=== PATIENT | male | born 1970 | race Caucasian/White ===

== ENCOUNTER 2016-08-13 15:28 | Emergency (ER) | payer SELFPAY ==
[~2016-08-13] VITALS: Ht 188 cm; Wt 104.5 kg
[2016-08-13 15:35] VITALS: BP 141/88; PULSE 94; TEMP 99.8
[2016-08-13] MEDS ORDERED: PROAIR HFA0.09 MG/AC IH ×2 (15:37→16:55)
[2016-08-13 16:08] LABS: INFLUENZA B NEGATIVE
[2016-08-13] MEDS ORDERED: PREDNISONE20 MG PO (16:55)
[2016-08-13] MEDS ORDERED: ZITHROMAX Z PA250 MG PO (16:55)
== END 2016-08-13 17:11 | disposition home or self-care (01) ==
LOC: COL.ER 15:28
PROVIDERS: Physician Assistant
DX: J20.9 Acute bronchitis, unspecified (principal); J45.909 Unspecified asthma, uncomplicated; F17.210 Nicotine dependence, cigarettes, uncomplicated

== ENCOUNTER → 2016-08-17 | Outpatient (REF) ==
[~2016-08-17] MED LIST: PREDNISONE20 MG PO; PROAIR HFA0.09 MG/AC IH; ZITHROMAX Z PA250 MG PO
== END ==
LOC: WSOH 08:32
DX: Z00.00 Encounter for general adult medical examination without abnormal findings (principal)